=== PATIENT | male | born 1935 | race Caucasian/White ===

== ENCOUNTER 2020-03-26 09:31 | Outpatient (CLI) | payer MEDICARE, OTHER, SELFPAY ==
--- NOTE | ~2020-03-26 | XR_ITS ---
EXAMINATION: XR chest 2V DATE: 03/26/2020 09:50 INDICATION: Myocardial infarct. Preop. TECHNIQUE: Frontal and lateral views of the chest were obtained. COMPARISON: None. FINDINGS: A calcified right lung nodule is consistent with old granulomatous disease. No pleural effu marisela or pneumothorax. The heart size is normal. IMPRESSION: 1. No acute cardiopulmonary disease. Reviewed, dictated and finalized at location A. NHOUSE OR NURSERY TRANSPLANTER
--- NOTE | 2020-03-26 09:34 | ECG_ITS ---
Measurements Intervals [place] Rate: 58 P: -27 FL: 256 QRS: -40 QRSD: 118 T: -15 QT: 389 QTc: 385 Interpretive Statements SINUS BRADYCARDIA WITH FIRST DEGREE AV BLOCK ATRIAL PREMATURE COMPLEX RIGHT BUNDLE BRANCH BLOCK ABNORMAL ECG Electronically Signed On 03-26-2020 11:18:12 CUSTOMER SERVICE CASHIER by Omega Jones D.O.
== END 2020-03-26 09:32 | disposition home or self-care (01) ==
PROVIDERS: PCP Family Medicine; Visit Provider Orthopaedic Surgery
DX: M70.22 Olecranon bursitis, left elbow (principal); I10 Essential (primary) hypertension; Z01.818 Encounter for other preprocedural examination; I44.0 Atrioventricular block, first degree; I45.10 Unspecified right bundle-branch block
CPT/HCPCS: 71046; 93005

== ENCOUNTER 2020-03-28 00:44 | Outpatient (CLI) | payer MEDICARE, OTHER, SELFPAY ==
[2020-03-31 21:25] LABS: SARS-CoV-2 RNA PCR Inconclusive
== END 2020-03-28 00:45 | disposition home or self-care (01) ==
LOC: ANHCOVIDDT 00:44
PROVIDERS: PCP Family Medicine; Visit Provider Orthopaedic Surgery
DX: Z01.812 Encounter for preprocedural laboratory examination (principal); Z20.822 Contact with and (suspected) exposure to COVID-19
CPT/HCPCS: C9803; U0003; U0005

== ENCOUNTER 2020-04-11 06:55 | Outpatient (NON) | payer MEDICARE, OTHER, SELFPAY ==
[2020-04-11 22:28] LABS: SARS-CoV-2 RNA PCR Negative
== END 2020-04-11 06:56 ==
PROVIDERS: Family Provider Internal Medicine; PCP Family Medicine; Visit Provider Orthopaedic Surgery
DX: Z20.822 Contact with and (suspected) exposure to COVID-19 (principal)
CPT/HCPCS: C9803; U0003; U0005

== ENCOUNTER 2020-04-14 10:01 | Outpatient (CLI) | payer MEDICARE, OTHER, SELFPAY ==
[2020-04-14 19:18] LABS: SARS-CoV-2 RNA PCR Negative
== END 2020-04-14 10:02 | disposition home or self-care (01) ==
LOC: ANHCOVIDDT 10:04
PROVIDERS: PCP Family Medicine; Visit Provider Orthopaedic Surgery
DX: Z01.812 Encounter for preprocedural laboratory examination (principal); Z20.822 Contact with and (suspected) exposure to COVID-19
CPT/HCPCS: C9803; U0003; U0005

== ENCOUNTER 2020-04-17 01:50 | Day surgery (SDC) | payer MEDICARE, OTHER, SELFPAY ==
[2020-03-25 10:26] VITALS: BMI 25.0
--- NOTE | 2020-03-30 16:06 | PM.IMHP ---
H&P: HPI History of Present Illness Date/Time: 03/30/20 16:06 Chief Complaint: chronic left olecranon bursal effusion. Narrative: Mack Mobley is a 84 year old male of Dr Bardales who presents today for excision of his lleft olecranon bursa. Patient had a traumatic bursal effusion back in August of 2019. He has had recurrence of the olecranon bursal effusion. He has had this drained 4 times up until this point. He has had a cortisone injection in February along with the aspiration unfortunately he continues to have recurrence of it. At this point he is tired of dealing with the continuous infusion. He notes that is easily to feel because the size of it on a daily basis. Excision of the bursa was a discussed with him and patient feels he would like proceed. He presents today for that. Review of Systems Review of Systems: All systems reviewed & are unremarkable except as noted in HPI and below PMFSH Past Medical History Medical History Bradycardia Dizziness HTN (hypertension) Hx of shelter use of blood thinners Mixed hyperlipidemia SCOTT on CPAP Peripheral polyneuropathy PFO (patent foramen ovale) Pre-diabetes Right carpal tunnel syndrome Squamous cell carcinoma of forehead Ventral hernia without obstruction or gangrene Surgical History Surgical History History of colonoscopy History of hernia repair History of rotator cuff surgery History of total bilateral knee replacement S/P foot surgery, right Family History Family History Father Family history of arthritis Social History Social History Smoking packs per day: 1 Smoking cigarettes per day: 20.0 Years smoked: 8 Smoking pack-years: 8.00 Smoking status: Former smoker Tobacco type: cigarettes Smoking end date: 03/13/62 Alcohol intake: current Spiritual care concerns: No Meds Home Medications and Allergies Home Medications Medication Instructions Recorded Confirmed Type aspirin 25 mg-dipyridamole 200 mg 1 cap PO BID 04/29/19 03/25/20 History capsule,ext.release 12 hr multiphase atorvastatin 40 mg tablet 40 mg PO DAILY 04/29/19 03/25/20 History cyclobenzaprine 10 mg tablet 10 mg PO DAILY PRN tablet 04/29/19 03/25/20 History zolpidem 10 mg tablet 10 mg PO PRN PRN tablet 04/29/19 03/25/20 History perindopril erbumine 4 mg PO QPM 03/25/20 03/25/20 History Allergies Allergy/AdvReac Type Severity Reaction Status Date / Time Penicillins Allergy Unknown Unknown Verified 03/25/20 09:55 Exam Narrative: Exam Narrative: 84-year-old male very alert pleasant in no distress. His left elbow range of motion is from 3-140 degrees. He has full pronation supination. He has normal extensor strength. 2+ radial pulse. He has a moderately large soft fluid collection at the olecranon bursa. Skin is all intact, there is no redness or warmth. Resp: Auscultation: clear to auscultation bilaterally Cardio: Rate: regular rate Rhythm: regular rhythm Assessment and Plan Additional Plan Patient has a recurrence at olecranon bursal effusion. It is not improved with multiple aspirations. He has had this for over 6 months now. Again he is tired of dealing with it and would like to proceed with surgery. Surgical procedure as well as the risk and complications were discussed in detail all questions were answered. He does have a history of TIA in the past and therefore will continue with his baby aspirin daily. He typically takes Aggrenox, this will be held for 2 days prior surgery and will resume it day after surgery. Patient will see his primary care doctor for pre-surgical clearance.
--- NOTE | 2020-03-31 16:00 | WPDANESEPPF ---
Anes - Initial Pre Proc Eval Procedure: Operation Date: 04/01/20 12:00 Proposed Procedures p Excision Left Elbow Olecranon Bursa - Louis Mon MD Date/Time: 03/31/20 16:00 Surgeon: Louis Mon MD Pre Op Diagnosis: Left Olecranon Bursitis Patient Data Age: 84 Gender: M Height: 1.91 m Weight: 90.72 kg Allergies Allergy/AdvReac Type Severity Reaction Status Date / Time Penicillins Allergy Unknown Unknown Verified 03/25/20 09:55 Home Medications Medication Instructions Recorded Confirmed Type aspirin 25 mg-dipyridamole 200 mg 1 cap PO BID 04/29/19 03/25/20 History capsule,ext.release 12 hr multiphase atorvastatin 40 mg tablet 40 mg PO DAILY 04/29/19 03/25/20 History cyclobenzaprine 10 mg tablet 10 mg PO DAILY PRN tablet 04/29/19 03/25/20 History zolpidem 10 mg tablet 10 mg PO PRN PRN tablet 04/29/19 03/25/20 History perindopril erbumine 4 mg PO QPM 03/25/20 03/25/20 History PMFSH Past Medical History Medical History Bradycardia Dizziness HTN (hypertension) 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 Mixed hyperlipidemia SCOTT on CPAP Peripheral polyneuropathy PFO (patent foramen ovale) Pre-diabetes Right carpal tunnel syndrome Squamous cell carcinoma of forehead Ventral hernia without obstruction or gangrene Surgical History Surgical History History of colonoscopy History of hernia repair History of rotator cuff surgery History of total bilateral knee replacement S/P foot surgery, right Family History Family History Father Family history of arthritis Social History Social History Smoking packs per day: 1 Smoking cigarettes per day: 20.0 Years smoked: 8 Smoking pack-years: 8.00 Smoking status: Former smoker Tobacco type: cigarettes Smoking end date: 03/13/62 Alcohol intake: current Spiritual care concerns: No Anes - Eval Final PreProcedure Day of Procedure 03/31/20 16:00 Patient weight: normal Heart: regular rate and rhythm Lungs: clear to auscultation and normal air movement Airway: Mallampati scale class II Neurological: alert and oriented Last oral intake: >/= 8 hours ASA classification: III Emergent: no Anesthetic plan: proceed Anesthesia type and monitoring: general LMA Informed Consent: The patient's anesthetic plan and its attendant risks and benefits were discussed with the patient/family/POA. Questions were solicited and answers provided to the satisfaction of the patient/family/POA.
--- NOTE | 2020-04-01 08:02 | SUR.PREOP ---
Dr Mon informed of failed Covid results, doctor states will cancel case today. Doctor request we inform patient case cancelled, patient to follow up with office and may resume medication that was held. This RN spoke to patient with information understanding stated
[2020-04-14 12:41] VITALS: BMI 25.0
--- NOTE | 2020-04-16 16:36 | WPDANESEPPF ---
Anes - Initial Pre Proc Eval Procedure: Operation Date: 04/17/20 13:00 Proposed Procedures p Excision Left Elbow Olecranon Bursa - Louis Mon MD Date/Time: 04/16/20 16:36 Surgeon: Louis Mon MD Pre Op Diagnosis: Left Olecranon Bursitis Patient Data Age: 84 Gender: M Height: 1.91 m Weight: 90.72 kg Allergies Allergy/AdvReac Type Severity Reaction Status Date / Time Penicillins Allergy Unknown Unknown Verified 04/17/20 11:28 Home Medications Medication Instructions Recorded Confirmed Type aspirin 25 mg-dipyridamole 200 mg 1 cap PO BID 04/29/19 03/25/20 History capsule,ext.release 12 hr multiphase atorvastatin 40 mg tablet 40 mg PO DAILY 04/29/19 03/25/20 History cyclobenzaprine 10 mg tablet 10 mg PO DAILY PRN tablet 04/29/19 03/25/20 History zolpidem 10 mg tablet 10 mg PO PRN PRN tablet 04/29/19 03/25/20 History perindopril erbumine 4 mg PO QPM 03/25/20 03/25/20 History Patient hx anesthesia problems: none Family hx anesthesia problems: none PMFSH Past Medical History Medical History Bradycardia Dizziness HTN (hypertension) 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 Mixed hyperlipidemia SCOTT on CPAP Peripheral polyneuropathy PFO (patent foramen ovale) Pre-diabetes Right carpal tunnel syndrome Squamous cell carcinoma of forehead Ventral hernia without obstruction or gangrene Surgical History Surgical History History of colonoscopy History of hernia repair History of rotator cuff surgery History of total bilateral knee replacement S/P foot surgery, right Family History Family History Father Family history of arthritis Social History Social History Smoking packs per day: 1 Smoking cigarettes per day: 20.0 Years smoked: 8 Smoking pack-years: 8.00 Smoking status: Former smoker Tobacco type: cigarettes Smoking end date: 03/13/87 Alcohol intake: current Alcohol use details: ONE DRINK PER MONTH Living arrangements: with family Spiritual care concerns: No Anes - Eval Final PreProcedure Day of Procedure 04/16/20 16:36 Patient weight: normal Heart: regular rate and rhythm Lungs: clear to auscultation and normal air movement Airway: Mallampati scale class II Neurological: alert and oriented Last oral intake: >/= 8 hours ASA classification: III Emergent: no Anesthetic plan: proceed Anesthesia type and monitoring: general LMA Informed Consent: The patient's anesthetic plan and its attendant risks and benefits were discussed with the patient/family/POA. Questions were solicited and answers provided to the satisfaction of the patient/family/POA.
[2020-04-17] VITALS (10 sets, daily range): BP systolic 127–145; BP diastolic 62–99; PULSE 47–64; RESP 12–20; TEMP 36.3–36.5; O2SAT 97–100; BMI 25.2
[2020-04-17] MEDS: LACTATED RINGERS 1,000 ML 30 ML IV CONT ×2 (12:12→14:27)
[2020-04-17] MEDS: KETOROLAC 15 MG/ML VIAL (*BKC) IV PUSH (12:12)
[2020-04-17] MEDS: ACETAMINOPHEN 500 MG TABLET 1000 MG PO (12:12)
--- NOTE | 2020-04-17 12:55 | WPDHPUPDATE1 ---
History and Physical Update Update Date/Time: 04/17/20 12:55 History and Physical has been reviewed, including an updated exam of the patient. There are NO changes in the patient's condition. Risks, benefits, and alternatives have been discussed and questions answered. Patient agrees to proceed with procedure.
[2020-04-17] MEDS: ceFAZolin 2 GM/D5W 50 ML 2 GM/50 ML BAG IVPB (13:04)
--- NOTE | 2020-04-17 14:08 | P.OP_ITS ---
Procedure Note - Detailed Date of procedure: 04/17/20 Pre-op diagnosis: Left Olecranon Bursitis Post-op diagnosis: same Procedure performed: Excision of olecranon bursa left elbow Description of procedure: Patient was brought to the operating room and general anesthesia was administered with LMA. He received 2 g of Ancef preoperatively. The left elbow was prepped draped usual fashion with a roll of soft towels as a bump underneath the posterior upper arm. Limb was exsanguinated tourniquet elevated to 225 mmHg. A longitudinal incision was made skirting a little bit lateral to the tip of the olecranon. We carefully dissected down to the cyst wall and dissected the skin meticulously at the level of the thin translucent membrane of the cyst to leave maximal dermal thickness. When we had approximately 3 force of the surface area of the bursal sac exposed its tightness and large size made it too difficult to proceed age and a small puncture was made in the cyst which allowed some of the to deflate which facilitated further dissection between the skin and the cyst wall and we brought this around circumferentially and then id deep side was from the underlying forearm fascia subcutaneous surface of the proximal ulna and olecranon and triceps tendon. The cubital tunnel was not violated. We put the tourniquet down and with a bipolar cautery to cauterize the few areas of bleeding which were minimal. Wound was irrigated with antibiotic solution. Wound was closed with 4 0 subcutaneous Vicryl and skin glue. Wound was quite dry at time of wound closure so I did not feel a drain would be helpful and with his thin skin there was a concern that a drain might cause problems with the skin from pressure. A Telfa was applied to the incision and a unfolded stack of fluffy 4 x 4 sponges followed by a light soft roll wrap a and volar elbow splint holding the elbow at about 70? of flexion and Rudy. EBL was less than 1 cc. Total tourniquet time was less than 40 minutes. There were no anesthesia complications. He was transferred postop recovery room stable condition. Implants: None Anesthesia: GLMA Surgeon: Louis Mon MD Tar Chaser: Taylor Tourniquet time (min): 40 Drains: No Packing: No Pathology: yes (left olecronon bursa) Complications: No immediate complications Condition: stable Disposition: PACU
[2020-04-17] MEDS: fentaNYL CITRATE INJ (*CRX) 100 MCG/2 ML VIAL 25 MCG IV PUSH ×4 (15:00→15:15)
[2020-04-17] MEDS: oxyCODONE HCL (*CRX) 5 MG TAB IR PO (16:07)
== END 2020-04-17 16:20 | disposition home or self-care (01) ==
PROVIDERS: Family Provider Internal Medicine; PCP Family Medicine; Visit Provider Orthopaedic Surgery
PROC: (CPT 24105; principal; 2020-04-17 13:00)
DX: M70.22 Olecranon bursitis, left elbow (principal); G47.33 Obstructive sleep apnea (adult) (pediatric); I10 Essential (primary) hypertension; R73.03 Prediabetes; Q21.1 Atrial septal defect; K43.9 Ventral hernia without obstruction or gangrene; G62.9 Polyneuropathy, unspecified; R00.1 Bradycardia, unspecified; Z85.828 Personal history of other malignant neoplasm of skin; E78.2 Mixed hyperlipidemia; Z87.891 Personal history of nicotine dependence; Z79.82 Long term (current) use of aspirin
CPT/HCPCS: 24105; 88304; A9270; J0690; J1100; J1885; J2370; J2405; J2704; J3010; J7120

== ENCOUNTER 2021-02-13 16:58 | Emergency (ER) | payer MEDICARE, OTHER, SELFPAY ==
--- NOTE | ~2021-02-13 | XR_ITS ---
EXAMINATION: XR chest 1V DATE: 02/13/2021 17:42 INDICATION: Cough and wheezing. TECHNIQUE: A single frontal view of the chest was obtained. COMPARISON: Chest 2 views 03/26/2020 FINDINGS: The chest demonstrates clear lungs without pneumonia, pleural effusion, or pneumothorax. Th e heart size is normal. IMPRESSION: 1. No acute cardiopulmonary disease. Reviewed, dictated and finalized at location A. ING SLINGER
--- NOTE | ~2021-02-13 | CT_ITS ---
EXAMINATION: CT brain wo con DATE: 02/13/2021 17:53 INDICATION: Dizziness. TECHNIQUE: Computed tomography (CT) of the head was performed without intravenous contrast. The mA wa s adjusted according to patient size. Iterative reconstruction technique was employed. The dose-lengt h product was 681.00 mGy-cm. COMPARISON: Head CT 03/26/2011, brain MRI 04/19/2011 FINDINGS: There is an old infarct in left cerebellum. There is an old infarct in right occipital lobe . There is an old infarct in right frontal lobe. There is no intracranial hemorrhage, acute infarctio n, or abnormal intracranial mass lesion. There are scattered areas of low attenuation in the cerebral white matter. There is ex vacuo dilatation of trigone and occipital horn of right lateral ventricle. There are likely changes of ocular lens replacement surgeries. There is a small left mastoid effusio n. IMPRESSION: 1. 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 2. Mild nonspecific cerebral white matter disease, which likely represents chronic small vessel ische veto disease. Reviewed, dictated and finalized at location A. RPRISE SYSTEMS ENGINEER IMPRESSION: 1. 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 2. Mild nonspecific cerebral white matter disease, which likely represents thai masseur claudia small vessel ischemic disease.
--- NOTE | ~2021-02-13 | CT_ITS ---
EXAMINATION: CTA brain carotid DATE: 02/13/2021 19:22 INDICATION: Dizziness. TECHNIQUE: Computed tomographic angiography (CTA) of the head was performed with 100 mL Omnipaque-350 intravenous contrast. CTA of the neck was performed with intravenous contrast. Automated exposure co ntrol and iterative reconstruction technique were employed. The dose-length product was 1313.24 mGy-c m. Maximum intensity projection and volume rendered 3D-reconstructions were created by the technologi st on a separate workstation. COMPARISON: Head CT 02/13/2021 FINDINGS: HEAD CTA: There is an old infarct in left cerebellum. There is an old infarct in right occipital lobe . There is an old infarct in right frontal lobe. There is no intracranial hemorrhage, acute infarctio n, or abnormal intracranial mass lesion. There are scattered areas of low attenuation in the cerebral white matter. There is ex vacuo dilatation of trigone and occipital horn of right lateral ventricle. There is a small left mastoid effusion. There are likely changes of ocular lens replacement surgerie s. There is mild mucosal thickening in the paranasal sinuses. The vertebral arteries are codominant. There is no significant stenosis of basilar artery or the posterior cerebral arteries. There is no si gnificant stenosis of the intracranial internal carotid arteries or anterior or middle cerebral arter ies. Anterior communicating artery is normal. There is no aneurysm. NECK CTA: There is mild mediastinal and left hilar lymphadenopathy, likely reactive. There is a kink in proximal left vertebral artery with moderate stenosis. There is plaque in the proximal internal ca rotid arteries. There is 0% stenosis of the proximal right internal carotid artery relative to normal distal artery lumen diameter (NASCET criteria). There is 0% stenosis of the proximal left internal c arotid artery relative to normal distal artery lumen diameter. There is severe cervical spondylosis. IMPRESSION: 1. 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 2. Mild nonspecific cerebral white matter disease, which likely represents chronic small vessel ische veto disease. 3. No aneurysm or significant intracranial arterial stenosis. 4. 0% stenosis of the proximal internal carotid arteries relative to normal distal artery lumen diame ters (NASCET criteria). Reviewed, dictated and finalized at location A. ARCH DIETITIAN IMPRESSION: 1. 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 2. Mild nonspecific cerebral white matter disease, which likely represents monotype keyboard operator claudia small vessel ischemic disease. 3. No aneurysm or significant intracranial arterial stenosis. 4. 0% stenosis of the proximal internal carotid arteries relative to normal dis krystin artery lumen diameters (NASCET criteria).
[2021-02-13 17:01] VITALS: PULSE 63; RESP 16; TEMP 36.8; O2SAT 97
--- NOTE | 2021-02-13 17:30 | ECG_ITS ---
Measurements Intervals [place] Rate: 53 P: ID: 0 QRS: 8 QRSD: 129 T: 12 QT: 426 QTc: 401 Interpretive Statements SINUS BRADYCARDIA ATRIAL PREMATURE COMPLEXES RIGHT BUNDLE BRANCH BLOCK BASELINE ARTIFACT- II, III, AVR, AVF, V2-V6 ABNORMAL ECG Electronically Signed On 02-13-2021 20:20:29 EMERGENCY ROOM REGISTERED NURSE by Omega Jones D.O.
--- NOTE | 2021-02-13 17:35 | ED.GENADULT ---
HPI - General Adult General Chief complaint: Nausea/Vomiting/Diarrhea Stated complaint: think hes having a stroke Time Seen by Provider: 02/13/21 17:13 Source: patient and family Mode of arrival: ambulatory Limitations: no limitations History of Present Illness HPI narrative: Patient presents to the ER with reports of transient dizziness. Symptoms started approximately 1 hour prior to arrival while he was seated in his kitchen at home. Symptoms lasted approximately one minute. He had an episode of vomiting. He came to the ER as he had similar symptoms many years ago when he had a stroke. He was on vacation at that time, with planned cruise to [place]. He was seen and treated at a hospital in [place]. He denies any deficits following his stroke. He denies any nausea or dizziness at present time. He denies any headache, change in speech, difficulty swallowing, motor/sensory deficits, chest pain, shortness of breath, abdominal pain, urinary symptoms, or change in bowel pattern. He has underlying HTN, hyperlipidemia, SCOTT, and squamous cell carcinoma of the face. He has been unable to use his CPAP for about one week as his CPAP is broken. Related Data Home Medications Medication Instructions Recorded Confirmed aspirin-dipyridamole cap PO 02/13/21 atorvastatin 02/13/21 perindopril erbumine mg 02/13/21 Allergies Allergy/AdvReac Type Severity Reaction Status Date / Time Penicillins Allergy Unknown Unknown Verified 04/17/20 11:28 Review of Systems Review of Systems: CONSTITUTIONAL: Denies fever, chills, or sweats. EYES: Denies visual changes, redness, or discharge. ENT: Denies rhinorrhea, congestion, sore throat, or otalgia. CARDIOVASCULAR: Denies chest pain, palpitations, or edema. RESPIRATORY: Denies cough or dyspnea. GASTROINTESTINAL: Reports one episode of vomiting. Reports recent nausea, now resolved. Denies abdominal pain or diarrhea. GENITOURINARY: Denies dysuria or hematuria. SKIN: Denies rash or itching. MUSCULOSKELETAL: Denies back pain, joint pain, or myalgia. NEUROLOGIC: Reports recent dizziness, now resolved. Denies headache, numbness, or weakness. PSYCHIATRIC: Denies anxiety or depression. [facility] Past Medical History Medical History Bradycardia Dizziness History of stroke HTN (hypertension) Hx of alf use of blood thinners Mixed hyperlipidemia SCOTT on CPAP Peripheral polyneuropathy PFO (patent foramen ovale) Pre-diabetes Right carpal tunnel syndrome Squamous cell carcinoma of forehead Ventral hernia without obstruction or gangrene Surgical History Surgical History History of colonoscopy History of hernia repair History of rotator cuff surgery History of total bilateral knee replacement S/P foot surgery, right Family History Family History Father Family history of arthritis Heart disease Social History Social History Smoking packs per day: 1 Smoking cigarettes per day: 20.0 Years smoked: 8 Smoking pack-years: 8.00 Smoking status: Former smoker Tobacco type: cigarettes Smoking end date: 03/13/87 Alcohol intake: current Alcohol use details: ONE DRINK PER MONTH Living arrangements: with family Gender identity (if verbalized by the patient): Male Sexual Orientation (if Verbalized by the Patient): Straight or Heterosexual Spiritual care concerns: No Exam Narrative: GENERAL: Well-appearing, well-nourished, and in no acute distress. HEAD: Normocephalic, atraumatic. EYES: PERRLA and EOMI. ENT: Nares clear, no rhinorrhea or epistaxis. Mucous membranes moist. Oropharynx without tonsillar hypertrophy exudate or other lesions. Bilateral TMs pearly vance nonbulging NECK: Supple. No adenopathy or masses. No carotid bruits or
[2021-02-13 18:38] LABS: Basophils Percent Auto 0.4 % (0.2-1.2); Eosinophils Absolute Auto 0.2 K/mm3 (0-0.3); Eosinophils Percent Auto 2.1 % (0-4.4); Hemoglobin 13.5 g/dL (14.0-18.0); Immature Granulocyte Absolute 0.02 K/mm3 (0.00-0.031); Immature Granulocyte Percent A 0.3 % (0-0.5); Lymphocytes Absolute Auto 2.74 K/mm3 (0.9-3.2); Lymphocytes Percent Auto 37.8 % (18.3-44.2); Mean Corpuscular HGB Conc 34.6 g/dl (32-36); Mean Corpuscular Hemoglobin 33.1 pg (26-34); Mean Corpuscular Volume 95.6 fl (80-100); Mean Platelet Volume 10.2 fl (7.4-10.4); Monocytes Absolute Auto 0.3 K/mm3 (0.1-0.6); Neutrophils Percent Auto 55.4 % (45.5-73.1); Platelet Count Result 172 k/mm3 (150-375); Red Blood Count 4.08 M/mm3 (4.6-6.20); Red Cell Distribution Width 12.6 % (11.5-14.5); White Blood Count 7.2 K/mm3 (4.5-10.0)
[2021-02-13 18:42] LABS: Alanine Aminotransferase 19 U/L (4-50); Albumin Level 3.7 g/dL (3.5-5.1); Alkaline Phosphatase 87 U/L (38-126); Anion Gap 8 mmol/L (8-16); Aspartate Amino Transferase 27 U/L (17-59); Bilirubin,Total 0.7 mg/dL (0.2-1.3); Blood Urea Nitrogen 19 mg/dL (9-20); Calcium 8.7 mg/dL (8.4-10.2); Carbon Dioxide 26 mmol/L (22-30); Chloride 106 mmol/L (98-107); Estimated CRCL calculation 50 ml/min; Estimated Glomerular Filt Rate 58; Glucose 113 mg/dL (65-110); Potassium 3.8 mmol/L (3.4-5.0); Sodium 140 mmol/L (137-145)
[2021-02-13 18:43] LABS: INR 0.9; Prothrombin Time 12.5 Seconds (11.1-14.7)
[2021-02-13 18:44] LABS: Partial Thromboplastin Time 25.4 SECONDS (22.3-36.8)
[2021-02-13 18:54] LABS: NT Pro B Type Natriuretic Pept 113 pg/mL (5-100); Troponin I < 0.012 ng/mL (0.000-0.034)
[2021-02-13 19:20] LABS: Add Urine Microscopic? YES; Appearance Urine Cloudy (Clear); Bilirubin Urine Negative (Negative); Blood Urine 1+ (Negative); Color Urine Yellow (Yellow); Glucose Urine UA Negative (Negative); Ketones Urine Negative (Negative); Leukocyte Esterase Ur Negative LEU/UL (Negative); Mucus Urine Few /lpf; Nitrate Urine Negative (Negative); Protein Urine Negative (Negative); Specific Grav Ur 1.027 (1.001-1.035); Squamous Epithelial Cell Urine Rare /hpf (Few)
[2021-02-13 19:26] VITALS: BP 129/71; PULSE 72; RESP 20; O2SAT 97
[2021-02-13 19:34] LABS: Free T4 Free Thyroxine 1.37 ng/mL (0.78-2.19)
[2021-02-13 20:17] VITALS: BP 132/66; PULSE 55; RESP 16; O2SAT 97
== END 2021-02-13 20:19 | disposition home or self-care (01) ==
PROVIDERS: Emergency Provider Nurse Practitioner; PCP Family Medicine
DX: R11.2 Nausea with vomiting, unspecified (principal); I10 Essential (primary) hypertension; E78.2 Mixed hyperlipidemia; R73.03 Prediabetes; G62.9 Polyneuropathy, unspecified; G47.33 Obstructive sleep apnea (adult) (pediatric); Z85.828 Personal history of other malignant neoplasm of skin; Z86.73 Personal history of transient ischemic attack (TIA), and cerebral infarction without residual deficits; Z96.653 Presence of artificial knee joint, bilateral; Z87.891 Personal history of nicotine dependence; Z79.82 Long term (current) use of aspirin; R90.82 White matter disease, unspecified; I49.1 Atrial premature depolarization; R94.31 Abnormal electrocardiogram [ECG] [EKG]; I45.10 Unspecified right bundle-branch block
CPT/HCPCS: 36415; 70450; 70496; 70498; 71045; 80053; 81001; 83880; 84439; 84443; 84484; 85025; 85610; 85730; 93005; 99284; Q9967